=== PATIENT | male | born 1945 | race Caucasian/White ===

== ENCOUNTER 2019-08-15 10:20 | Outpatient (CLI) | payer OTHER, SELFPAY ==
--- NOTE | 2019-08-15 11:00 | USCV_ITS ---
Gallito Bernal Age: 73 Gender: M : 1945 Exam Date: 08/15/2019 10:58 Ordering Phys: Kishore Welsh MD Technologist: Tila Little [place] [facility] [place]: ISCHEMIC HEART DISEASE BP: 135 / 64 HR: 61 Rhythm: Sinus Technical Quality: Suboptimal MEASUREMENTS (Male / Female) Normal Values 2D ECHO LV Diastolic Diameter PLAX 3.9 cm 4.2 - 5.9 / 3.9 - 5.3 cm LV Systolic Diameter PLAX 3.1 cm LV Chamber Size 3.3 cm IVS Diastolic Thickness 1.9 cm 0.6 - 1.0 / 0.6 - 0.9 cm IVS Systolic Thickness 2.0 cm LVPW Diastolic Thickness 0.9 cm 0.6 - 1.0 / 0.6 - 0.9 cm LVPW Systolic Thickness 1.3 cm RV Chamber Size 2.3 cm LVOT Diameter 2.1 cm LV Ejection Fraction 2D Teich 43.7 % LV Ejection Fraction MOD 2C 59.9 % LV Ejection Fraction 2C AL 63.7 % LA Diameter 4.2 cm LA Width 3.6 cm LA Height 5.1 cm RA Width 2.3 cm RA Height 5.4 cm Aorta at Sinotubular Diameter 3.3 cm M-MODE LV Diastolic Diameter MM 5.6 cm 4.2 - 5.9 / 3.9 - 5.3 cm LV Systolic Diameter MM 3.8 cm LV Ejection Fraction MM Teich 58.9 % IVS Diastolic Thickness MM 1.1 cm 0.6 - 1.0 / 0.6 - 0.9 cm IVS Systolic Thickness MM 1.2 cm LVPW Diastolic Thickness MM 1.0 cm 0.6 - 1.0 / 0.6 - 0.9 cm LVPW Systolic Thickness MM 1.4 cm RV Diastolic Diameter MM 1.6 cm Aortic Annulus Diameter 3.5 cm LA Ao Ratio MM 1.2 MV E Point Septal Separation 0.6 cm DOPPLER AV Peak Velocity 90.0 cm/s LVOT Peak Velocity 62.0 cm/s AV Area Cont Eq vti 2.6 cm squared AV Area Cont Eq pk 2.4 cm squared MV Area PHT 4.0 cm squared Mitral E to A Ratio 0.9 MV E' Velocity 10.0 cm/s Mitral E to MV E' Ratio 8.6 Mitral E to LV E' Lateral Ratio 7.3 Mitral E to LV E' Septal Ratio 10.5 TV Peak E Velocity 48.0 cm/s Right Atrial Pressure 3.0 mmHg PV Peak Velocity 55.0 cm/s RV Acceleration Time 0.1 s RV Ejection Time 0.3 s RV AcT/ET 0.4 FINDINGS Left Ventricle Left ventricular ejection fraction is estimated at 55 %. Normal left ventricular size, systolic function and wall thickness, with inferior and basal moderate regional wall motion abnormalities. Right Ventricle Normal right ventricular size. Normal right ventricular systolic function. Right Atrium Mildly increased right atrial size. Left Atrium Mildly increased left atrial size. Mitral Valve Thickened mitral valve. No mitral valve stenosis. Trace mitral valve regurgitation. Aortic Valve Thickened aortic valve. Trace to mild aortic valve regurgitation. No aortic valve stenosis. Tricuspid Valve Trace tricuspid valve regurgitation. Pulmonic Valve Pulmonic valve not well visualized. Pericardium No pericardial effusion Aorta CONCLUSIONS Normal overall LV function EF 55 % Inferobasal hypokinesia No significant valvular stenosis Mild Aortic regurgitation No pericardial effusion Emmanuel Melgoza MD (Electronically Signed) Final Date: 15 August 2019 13:38 S
== END 2019-08-15 10:21 | disposition home or self-care (01) ==
LOC: RAD 10:22
PROVIDERS: Family Provider Physician Assistant Medical; PCP Physician Assistant Medical; Visit Provider Orthopaedic Surgery
DX: I25.9 Chronic ischemic heart disease, unspecified (principal); I35.1 Nonrheumatic aortic (valve) insufficiency
CPT/HCPCS: 93306

== ENCOUNTER → 2021-04-26 09:01 | Outpatient (BNVA) | payer OTHER, SELFPAY | PROVIDERS: Family Provider Physician Assistant Medical; PCP Physician Assistant Medical; Visit Provider Surgery | DX: Z20.822 Contact with and (suspected) exposure to COVID-19 (principal); Z11.52 Encounter for screening for COVID-19 | CPT/HCPCS: 87635 ==

== ENCOUNTER 2021-04-29 07:03 | Day surgery (SDC) | payer OTHER, SELFPAY ==
[2021-04-26 15:38] VITALS: BMI 34.9
[2021-04-29 07:36] VITALS: BP 155/79; PULSE 45; RESP 18; TEMP 36.1; O2SAT 97
--- NOTE | 2021-04-29 07:37 | ANES.PREANE2 ---
Pre-Anesthetic Assessment Pre-Anesthetic Assessment: Height/Weight: Height 1.65 m Weight 95.254 kg Proposed Procedure: Operation Date: 04/29/21 08:30 Proposed Procedures p EGD 88089 r10.13(Not Applicable) - Yang Iqbal MD Was Beta Abel taken within 24 hours: Yes Was Clonidine taken within 24 hours: N/A Last intake: Intake Last Liquid Date 04/28/21 Last Liquid Time 21:30 Last Solid Date 04/28/21 Last Solid Time 19:00 Social: Social History: No alcohol and No tobacco Airway: Submandibular: WNL Cervical ROM: WNL (Limited in extension by pain) MP: 1 Dentition: False History/ROS: No significant history except as noted Pulmonary: Pulmonary: COPD and LEMON CV/HEM: CV/HEM: CAD, HTN and Murmur (Mild AR) Comments: Normal overall LV function EF 55 % Inferobasal hypokinesia No significant valvular stenosis Mild Aortic regurgitation No pericardial effusion : : None reported Hepatic: Hepatic: None reported GI: GI: None reported Metabolic: Metabolic: None reported Musc/skel: Musc/skel: None reported Neuropsych: Neuropsych: None reported Anesthetic Plan: ASA status: 3 Anesthesia: Anesthesia Evaluation, General and MAC Risk of > 500 ml blood loss (7ml/kg in children): No PFSH Anesthesia PFSH: Medical History COPD (chronic obstructive pulmonary disease) Dyslipidemia GERD (gastroesophageal reflux disease) Hypertension Myocardial infarct Surgical History H/O esophagogastroduodenoscopy History of appendectomy History of arthroscopy of shoulder History of bilateral knee replacement History of cholecystectomy History of coronary artery stent placement History of umbilical hernia repair Status post colonoscopy Family History Denies family history of Anesthesia complication Bleeding disorder Social History Smoking and tobacco status: former smoker Data Anesthesia Cardiac Studies: No Data to Display
[2021-04-29] MEDS: sodium chloride 0.9% 1,000 ML 30 ML IV (08:02)
--- NOTE | 2021-04-29 08:47 | W.PM.OPSFHP ---
Same Day Surgery H&P Indication for Procedure/HPI DATE OF PROCEDURE: April 29, 2021 CHIEF COMPLAINT/INDICATIONFOR SURGICAL PROCEDURE: gerd PREOP DIAGNOSIS: upper gi symptoms PLANNED PROCEDRUE: Operation Date: 04/29/21 08:30 Proposed Procedures p EGD 76405 r10.13(Not Applicable) - Yang Iqbal MD Medications/Allergies* Home Medications Medication Instructions Recorded Confirmed Type albuterol 90 mcg/actuation aerosol 90 mcg INHALATION DAILY 02/23/21 04/29/21 History inhaler aspirin 325 mg tablet 325 mg PO DAILY 02/23/21 04/29/21 History atorvastatin 40 mg tablet 40 mg PO DAILY 02/23/21 04/29/21 History budesonide-formoterol HFA 80 2 puff INHALATION BID 02/23/21 04/29/21 History mcg-4.5 mcg/actuation aerosol inhaler carvedilol 12.5 mg tablet 6.25 mg PO BID tab 02/23/21 04/29/21 History isosorbide mononitrate 60 mg 60 mg PO DAILY 02/23/21 04/29/21 History tablet,extended release 24 hr lisinopril 5 mg tablet 5 mg PO DAILY 02/23/21 04/29/21 History omeprazole 40 mg capsule,delayed 40 mg PO BID 02/23/21 04/29/21 History release prasugrel 10 mg tablet 10 mg PO DAILY 02/23/21 04/29/21 History ranolazine 500 mg tablet,extended 500 mg PO BID 02/23/21 04/29/21 History release,12 hr tiotropium bromide 2.5 2 inh INHALATION QAM 02/23/21 04/29/21 History mcg/actuation mist for inhalation Allergies/Adverse Reactions Allergy/AdvReac Type Severity Reaction Status Date / Time tetracycline Allergy Unknown Verified 02/23/21 09:40 Current Medications: Generic Name Dose Route Start Last Admin Trade Name Freq PRN Reason Stop Dose Admin Sodium Chloride 1,000 mls @ 30 mls/hr 04/29/21 07:45 04/29/21 08:02 Sodium Chloride 0.9% IV 04/30/21 07:44 30 mls/hr .Q24H MECHELLE Administration Pertinent History/Comorbid Conditions* Medical History (Updated 02/23/21 @ 09:59 by aYng Iqbal MD) COPD (chronic obstructive pulmonary disease) Dyslipidemia GERD (gastroesophageal reflux disease) Hypertension Myocardial infarct Surgical History (Updated 02/23/21 @ 10:00 by Yang Iqbal MD) H/O esophagogastroduodenoscopy History of appendectomy History of arthroscopy of shoulder History of bilateral knee replacement History of cholecystectomy History of coronary artery stent placement History of umbilical hernia repair Status post colonoscopy Family History (Updated 02/23/21 @ 09:50 by MOSES Caballero) Denies family history of Anesthesia complication Bleeding disorder Social History Smoking and tobacco status: former smoker Pertinent Exam Findings alert, oriented x 3 and regular rate & rhythm Recommendations Surgery/Procedure today Coding Level of Care Code Acute [employer]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
[2021-04-29 09:19] VITALS: BP 139/75; PULSE 69; RESP 18; TEMP 36.3; O2SAT 95
[2021-04-29 09:28] VITALS: PULSE 61; RESP 18; TEMP 36.6; O2SAT 96
[2021-04-29 09:32] VITALS: BP 149/68
--- NOTE | 2021-04-29 13:18 | ANE.PACU2 ---
Inpatient post-anesthesia follow up: Airway intact: Yes Vital signs: Temperature 97.8 F Pulse Rate 61 Respiratory Rate 18 Blood Pressure 149/68 Pulse Oximetry 96 Oxygen Delivery Me thod Room Air Oxygen Flow Rate Fraction of Inspir ed Oxygen Hydration adequate: Yes Nausea and vomiting: Yes Pain level: 1 Mental status: Baseline
== END 2021-04-29 09:51 | disposition home or self-care (01) ==
PROVIDERS: PCP Family Medicine; Visit Provider Surgery
PROC: 0DJ08ZZ Inspection of Upper Intestinal Tract, Via Natural or Artificial Opening Endoscopic (ICD-10-PCS; CPT 43235; principal; 2021-04-29 08:30)
DX: R10.13 Epigastric pain (principal); K25.9 Gastric ulcer, unspecified as acute or chronic, without hemorrhage or perforation; J44.9 Chronic obstructive pulmonary disease, unspecified; E78.5 Hyperlipidemia, unspecified; K21.9 Gastro-esophageal reflux disease without esophagitis; I10 Essential (primary) hypertension; I25.2 Old myocardial infarction; Z87.891 Personal history of nicotine dependence
CPT/HCPCS: 43239; 88305; 96360; 96361; J2704; J7030

== ENCOUNTER 2023-04-12 20:00 | Outpatient (CLI) | payer OTHER, SELFPAY | END 2023-04-12 20:01 | disposition home or self-care (01) | LOC: SLEEP 04-13 04:55 | PROVIDERS: PCP Family Medicine; Visit Provider Emergency Medicine Emergency Medical Services | DX: G47.33 Obstructive sleep apnea (adult) (pediatric) (principal) | CPT/HCPCS: 95810 ==

== ENCOUNTER → 2024-05-15 12:57 | Outpatient (BNVA) | payer OTHER, SELFPAY | PROVIDERS: PCP Family Medicine; Visit Provider Specialist | DX: M25.522 Pain in left elbow (principal) | CPT/HCPCS: 73080; 99204 ==

== ENCOUNTER 2024-05-24 12:25 | Outpatient (CLI) | payer OTHER, SELFPAY ==
--- NOTE | 2024-05-24 13:00 | MRR_ITS ---
PROCEDURE INFORMATION: Exam: MR Left Upper Extremity Joint Without Contrast; Elbow Exam date and time: 05/24/2024 1:06 PM Age: 78 years old Clinical indication: Patient HX: Chronic left elbow pain x approx 8 months; Additional info: Left elbow pain. Note: Sag t2 pd fs repeated but PT unable to hold still any further TECHNIQUE: Imaging protocol: Magnetic resonance imaging of the left upper extremity without contrast. Exam focused on the elbow. COMPARISON: CR XR elbow LT min 3V* [id number] 05/15/2024 12:58 PM FINDINGS: Bones/joints: Prominent synovial hypertrophy without significant joint fluid. Prominent signal abnormality of the proximal radius with areas of heterogeneous signal raising the question of developing osteonecrosis. There is cortical irregularity of the medial aspect of the trochlea (image 9 of series 1001 and lateral aspect of the capitellum (image 9 of series 1001) suspicious for marginal erosions. Additional erosive change of the medial aspect of the olecranon process (image 5 of series 1001). Subcentimeter marginal erosions of the proximal ulna in the region of the coronoid process. No evidence of acute fracture or subluxation. Ulnar (medial) collateral ligament: Grossly intact. Radial collateral ligament of the elbow: Grossly intact. Annular ligament of the radius: Grossly intact. Tendon of the biceps brachii: Intact. Moderate tendinosis. There is subcentimeter heterotopic ossification near the insertion of the radial tuberosity, possibly sequela of remote avulsive injury. Tendon of the brachialis: Intact. Mild tendinosis. Triceps tendon: Intact. Insertional enthesophyte noted. Common flexor tendon: Intact. Common extensor tendon: Low-grade intrasubstance tear on a background of moderate tendinosis. Otherwise intact. Soft tissues: No evidence of fluid collection or hematoma. MR/MR elbow LT wo con* [id number] IMPRESSION: 1. Findings suspicious for inflammatory arthropathy. Correlation with laboratory findings and rheumatologic evaluation is recommended. 2. Low-grade intrasubstance tear of the common extensor tendon on a background of moderate tendinosis. 3. Moderate distal triceps tendinosis with suspected chronic avulsive injury at the insertion. 4. Signal abnormality of the proximal radius raising the question of developing osteonecrosis.
== END 2024-05-24 12:26 | disposition home or self-care (01) ==
LOC: RAD 12:27
PROVIDERS: PCP Family Medicine; Visit Provider Specialist
DX: S56.512A Strain of other extensor muscle, fascia and tendon at forearm level, left arm, initial encounter (principal); M67.824 Other specified disorders of tendon, left elbow; X58.XXXA Exposure to other specified factors, initial encounter; R93.6 Abnormal findings on diagnostic imaging of limbs
CPT/HCPCS: 73221

== ENCOUNTER → 2024-07-18 13:00 | Outpatient (BNVA) | payer OTHER, SELFPAY | PROVIDERS: PCP Family Medicine; Visit Provider Specialist | DX: M06.4 Inflammatory polyarthropathy (principal); M77.02 Medial epicondylitis, left elbow | CPT/HCPCS: 36415; 80053; 84550; 85025; 85651; 86140; 86200; 86225; 86235; 86431; 99214 ==

== ENCOUNTER → 2025-04-04 07:48 | Outpatient (BNVA) | payer OTHER, SELFPAY | PROVIDERS: PCP Family Medicine; Visit Provider Dermatology | DX: L30.8 Other specified dermatitis (principal); D17.0 Benign lipomatous neoplasm of skin and subcutaneous tissue of head, face and neck; L82.1 Other seborrheic keratosis; D18.01 Hemangioma of skin and subcutaneous tissue; L57.0 Actinic keratosis | CPT/HCPCS: 17000; 99203 ==